=== PATIENT | female | born 1950 | race Caucasian/White ===

== ENCOUNTER 2024-01-03 22:51 | Emergency (ER) | payer OTHER ==
[~2024-01-03] VITALS: Ht 152.4 cm; Wt 96.6 kg
[~2024-01-03 22:51] MED LIST: ASPIRIN; ATENOLOL; CLINDAMYCIN PO; HYDR-914 PO; LISINOPRIL; PROZAC
[2024-01-03 22:56] VITALS: BP_SYST 169; PULSE 92; RESP 16; TEMP 97.9; O2SAT 98
[2024-01-04] MEDS: ALPRAZolam 0.25 MG TABLET PO ONE (00:21)
[2024-01-04 02:34] VITALS: BP_SYST 138; PULSE 77; RESP 16; TEMP 98.2; O2SAT 97
== END 2024-01-04 02:30 | disposition home or self-care (01) ==
LOC: SED 22:51
DX: R04.0 Epistaxis (principal); I10 Essential (primary) hypertension; Z88.0 Allergy status to penicillin; Z88.5 Allergy status to narcotic agent; Z79.899 Other long term (current) drug therapy
CPT/HCPCS: 99285